=== PATIENT | male | born 1960 | race Caucasian/White ===

== ENCOUNTER 2018-03-27 23:40 | Emergency (ER) | payer OTHER ==
[~2018-03-27 23:40] MED LIST: ATIVAN1 M1 PO; DICLOFENAC SODI75 M2 PO
[2018-03-27 23:51] VITALS: BP 138/96
--- NOTE | 2018-03-28 00:13 | ED GENERAL ADULT ---
History of Present Illness General Chief Complaint: General Adult Stated Complaint: " MY LEGS ARE BAD, UPSET ABOUT 03/27,GETTING OLD" Source: patient Exam Limitations: no limitations Vital Signs & Intake/Output Vital Signs & Intake/Output Vital Signs Date Time Temp Pulse Resp B/P B/P Pulse O2 O2 Flow FiO2 Mean Ox Delivery Rate 03/27 2351 97.6 102 17 138/96 98 Room Air ED Intake and Output 03/28 0000 03/27 1200 Intake Total Output Total Balance Patient 210 lb Weight Weight Reported by Patient Measurement Method Allergies Coded Allergies: NO KNOWN ALLERGIES (02/16/16) Reconcile Medications Diclofenac Sodium 75 MG TABLET.DR 1 TAB PO BID PRN PAIN LORazepam (Ativan) 1 MG TABLET 1 TAB PO TID PRN anxiety Triage Note: PT TO ED WITH C/O ANXIETY RELATED TO SEVERAL FACTORS. PT STATES, "SUMMER IS ENDING AND 03/27 IS RIGHT BEFORE MY BIRTHDAY, SO IT MAKES ME ANXIOUS." STATES HE TOOK IS PRESCRIBED SLEEP AID, HOWEVER IT IS NOT WORKING TONIGHT. REPORTS LEGS FEEL SORE, OF NOTE, PT RODE BICYCLE TO ED. DENIES SI/HI. Triage Nurses Notes Reviewed? yes HPI: PT TO ED WITH C/O ANXIETY RELATED TO SEVERAL FACTORS. PT STATES, "SUMMER IS ENDING AND 03/27 IS RIGHT BEFORE MY BIRTHDAY, SO IT MAKES ME ANXIOUS." STATES HE TOOK IS PRESCRIBED SLEEP AID, HOWEVER IT IS NOT WORKING TONIGHT AND LEGS FEEL SORE, OF NOTE, PT RODE BICYCLE TO ED. DENIES SI/HI. Past History Travel History Traveled to [place] past 21 day No Medical History Any Pertinent Medical History? see below for history Neurological: NONE EENT: NONE Cardiovascular: NONE Respiratory: NONE Gastrointestinal: NONE Hepatic: NONE Renal: NONE Musculoskeletal: NONE Psychiatric: anxiety, bipolar disease Endocrine: NONE Blood Disorders: NONE Cancer(s): NONE PHARMACY TECHNICIAN PER DIEM/Reproductive: NONE Surgical History Surgical History: non-contributory Psychosocial History What is your primary language Congolese Tobacco Use: Never used Family History Hx Contributory? No Review of Systems Review of Systems Constitutional: Reports: no symptoms, see HPI. EENTM: Reports: no symptoms. Respiratory: Reports: no symptoms. Cardiovascular: Reports: no symptoms. GI: Reports: no symptoms. Genitourinary: Reports: no symptoms. Musculoskeletal: Reports: no symptoms. Skin: Reports: no symptoms. Neurological/Psychological: Reports: no symptoms. Hematologic/Endocrine: Reports: no symptoms. Immunologic/Allergic: Reports: no symptoms. All Other Systems: Reviewed and Negative Physical Exam Physical Exam General Appearance: no apparent distress Comments: General: Alert, calm, cooperative Head: Normocephalic, atraumatic Eyes: Normal inspection, no nystagmus, EOMI Ears: Normal inspection Nose: Normal inspection Throat: Moist mucosa Neck: Supple, no goiter Heart: Regular rate and rhythm, no murmurs rubs or gallops Lungs: Clear to auscultation bilaterally with good air entry Abdomen: Soft nontender nondistended, normal bowel sounds Chest: Nontender Extremities: Normal range of motion grossly, mild tremors present, no cyanosis clubbing or edema of the upper extremities Neurologic: cranial nerves II through XII grossly intact, speech clear, gait normal, reflexes intact upper and lower. Psychiatric: No apparent delusions or hallucinations, no pressured speech or thought blocking Core Measures ACS in differential dx? No CVA/TIA Diagnosis: No Sepsis Present: No Sepsis Focused Exam Completed? No Progress Differential Diagnoses I considered the following diagnoses in my evaluation of the patient: Leg pain, restless leg syndrome, anxiety, drug-seeking behavior Plan of Care: Laboratory and imaging not indicated at this time. Initial ED EKG: none Comments: Patient repetitively asked for medications to help with his sleep tonight and patient was referred to [id number] melatonin. If insomnia persists to follow-up with his mental health specialist. Departure Departure Disposition: HOME OR SELF CARE Condition: Stable Clinical Impression Primary Impression: Drug-seeking behavior Secondary Impressions: Insomnia Qualifiers: Insomnia type: unspecified Qualified Code: G47.00 - Insomnia, unspecified Restless legs Referrals: Derian Epstein APRN (PCP/Family) Additional Instructions: Use [id number] melatonin as needed for insomnia. Departure Forms: Customer Survey General Discharge Information Comments Please note that there might be incidental findings in your evaluation that are unrelated to the current emergency department visit. Please notify your primary care doctor about this emergency department visit in order to obtain and review all of the testing performed so that these incidental findings can be monitored as needed. If you had an x-ray performed, please understand that some fractures may not be seen on the initial set of x-rays. If your symptoms persist you might need a repeat set of x-rays to check for such a fracture. If you had a laceration evaluated, please understand that foreign bodies such as glass or wood may not be visible to the naked eye or on plain x-rays. If the wound becomes red, swollen, increasingly more painful or if there is any drainage from the wound, please have it reevaluated by a physician for the possibility of a retained foreign body. If you're unable to follow up as outlined in the discharge instructions please return to the emergency department. Critical Care Note Critical Care Note Critical Care Time: non-applicable
== END 2018-03-28 00:28 ==
LOC: ERH 23:40
DX: Z76.5 Malingerer [conscious simulation] (principal); G47.00 Insomnia, unspecified; G25.81 Restless legs syndrome; F31.9 Bipolar disorder, unspecified